=== PATIENT | male | born 1945 | race Caucasian/White ===

== ENCOUNTER 2018-02-26 13:05 | Emergency (ER) | payer OTHER ==
[~2018-02-26] VITALS: Ht 188 cm; Wt 110.2 kg
[2018-02-26] MEDS ORDERED: CLINDAMYCIN HC150 MG PO (13:28)
[2018-02-26] MEDS ORDERED: SIMVASTATIN20 MG PO (13:30)
[2018-02-26] MEDS ORDERED: METOPROLOL SUCC50 MG PO (13:30)
[2018-02-26] MEDS ORDERED: LOSARTAN-HCTZ1 EAC1 PO (13:30)
--- NOTE | 2018-02-26 14:22 | Diagnostic Imaging Report ---
RIGHT HUMERUS X-RAY - 4 VIEWS HISTORY: Fell on [place] track in a[place] COMPARISON: None available. FINDINGS: Bones: No acute displaced fracture. Osseous alignment is within normal limits. Joints: The joint spaces are well-maintained. Soft tissues: The soft tissues appear unremarkable. IMPRESSION: No acute radiographic abnormality. Signed by: Dr. Kiki Andujar M.D. on 02/26/2018 2:19 PM
== END 2018-02-26 14:30 | disposition home or self-care (01) ==
LOC: FSED 13:05
DX: S43.421A Sprain of right rotator cuff capsule, initial encounter (principal); W01.0XXA Fall on same level from slipping, tripping and stumbling without subsequent striking against object, initial encounter; Y93.01 Activity, walking, marching and hiking; Y99.0 Civilian activity done for income or pay; I10 Essential (primary) hypertension; I50.9 Heart failure, unspecified
CPT/HCPCS: 99283

== ENCOUNTER 2022-09-27 08:46 | Emergency (ER) | payer MEDICARE, OTHER ==
[~2022-09-27] VITALS: Ht 185.4 cm; Wt 114.4 kg
[~2022-09-27 08:46] MED LIST: CLINDAMYCIN HC150 MG PO; LOSARTAN-HCTZ1 EAC1 PO; METOPROLOL SUCC50 MG PO; SIMVASTATIN20 MG PO
[2022-09-27] MEDS ORDERED: ELIQUIS5 MG PO (09:14)
[2022-09-27] MEDS ORDERED: ACETAMINOPHEN 325 MG TAB PO ONE (09:15)
[2022-09-27] MEDS ORDERED: ACETAMINOPHEN 325 MG TAB ONE (09:18)
[2022-09-27] MEDS ORDERED: CLARITIN10 MG PO (10:02)
== END 2022-09-27 10:14 | disposition home or self-care (01) ==
LOC: FSED 08:52
DX: R50.9 Fever, unspecified (principal); J06.9 Acute upper respiratory infection, unspecified; I10 Essential (primary) hypertension; E78.5 Hyperlipidemia, unspecified; I50.9 Heart failure, unspecified; Z95.0 Presence of cardiac pacemaker
CPT/HCPCS: 71046; 80053; 81003; 83518; 85025; 87400; 99284